=== PATIENT | female | born 1965 | race Caucasian/White ===

== ENCOUNTER 2019-05-08 11:02 | Outpatient (CLI) | payer BC, SELFPAY ==
--- NOTE | ~2019-05-08 | XR_ITS ---
EXAMINATION: SNIFF TEST W/O CXR +FLUORO<1HR DATE: 03/10/11 11:13:00 INDICATION: Shortness of breath TECHNIQUE: Fluoroscopy was utilized for evaluation of diaphragmatic excursion with rapid inspiration. Fluoroscopy exposure time was 0.3 minutes. The DAP for this procedure was 3.83 Gycm2 COMPARISON: 04/27/19 FINDINGS: Patient became lightheaded and diaphoretic after the AP views of the chest were obtained an d examination was terminated. There is elevation of the left hemidiaphragm compared to the right with normal breathing. There is normal caudal excursion of both the right leaf of the diaphragm with rapi d inspiration. There is very little movement of the left hemidiaphragm with rapid inspiration. Visual ized portions of lung are clear. Heart size is normal. IMPRESSION: 1. 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 Reviewed, dictated and finalized at location A. CH PATHOLOGY ASSISTANT
== END 2019-05-08 11:03 | disposition home or self-care (01) ==
PROVIDERS: PCP Physician Assistant Medical; Visit Provider Family Medicine
DX: R06.02 Shortness of breath (principal)
CPT/HCPCS: 76000

== ENCOUNTER 2019-06-12 12:55 | Outpatient (CLI) | payer BC, SELFPAY ==
--- NOTE | ~2019-06-12 | CT_ITS ---
EXAMINATION: CT chest wo con DATE: 06/12/2019 13:47 INDICATION: Paralysis of the diaphragm. Dyspnea. TECHNIQUE: Computed tomography (CT) of the chest was performed without intravenous contrast. The dose -length product was 277.06 mGy-cm. Automated exposure control and iterative reconstruction technique were employed. COMPARISON: Chest x-ray dated 04/27/2019 FINDINGS: No thoracic lymphadenopathy. There is significant elevation of the left diaphragm, compatib le with diaphragmatic paralysis given the clinical history. Heart size is normal. No significant pleu ral or pericardial effusion. There is left basilar atelectasis. No suspicious pulmonary nodules or ma sses. No focal consolidation to suggest pneumonia. There is an irregular shaped 2 cm mass in the late ral aspect of the right breast, image 54. There is a 3.1 cm cyst left hepatic lobe. IMPRESSION: 1. 2 cm mass lateral aspect of the right breast. Correlation with diagnostic bilateral mammogram and right breast ultrasound recommended. 2: Significant elevation of the left diaphragm, concerning for diaphragmatic paralysis. Left basilar atelectasis. Reviewed, dictated and finalized at location B. TMAN IMPRESSION: 1. 2 cm mass lateral aspect of the right breast. Correlation with diagnostic bi lateral mammogram and right breast ultrasound recommended. 2: Significant elevation of the left diaphragm, concerning for diaphragmatic pa ralysis. Left basilar atelectasis.
--- NOTE | ~2019-06-12 | CT_ITS ---
EXAMINATION: CT soft tissue neck wo con DATE: 06/12/2019 13:45 INDICATION: Paralysis of diaphragm. TECHNIQUE: Computed tomography (CT) of the neck was performed without intravenous contrast. Automated exposure control and iterative reconstruction technique were employed. The dose-length product was 5 69.75 mGy-cm. COMPARISON: None FINDINGS: The orbits are normal. There are no pathologically enlarged lymph nodes. There is mucosal t hickening in the paranasal sinuses with changes of ethmoidectomies and uncinectomies. The mastoid air cells are normal. There is mild cervical spondylosis. IMPRESSION: 1. No evidence of malignancy. Reviewed, dictated and finalized at location A. 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
== END 2019-06-12 12:56 | disposition home or self-care (01) ==
PROVIDERS: PCP Physician Assistant Medical
DX: J98.6 Disorders of diaphragm (principal); R91.8 Other nonspecific abnormal finding of lung field
CPT/HCPCS: 70490; 71250

== ENCOUNTER 2020-08-16 22:59 | Emergency (ER) | payer BC, SELFPAY ==
--- NOTE | ~2020-08-16 | XR_ITS ---
XR chest 2V 08/16/2020 23:55 Indication: Chest pain and cough Procedure: PA and lateral views of the chest Comparison: 04/27/2019 Findings: Heart size normal. Chronic elevation of the left diaphragm, suspicious for phrenic nerve pa ralysis. Left basilar atelectasis. No acute pneumonia, pleural effusion or pneumothorax. No edema. No acute osseous abnormality. Impression: 1: Chronic elevation of the left diaphragm with compressive atelectasis. Reviewed, dictated and finalized at location A. Impression: 1: Chronic elevation of the left diaphragm with compressive atelectasis.
--- NOTE | ~2020-08-16 | CT_ITS ---
EXAMINATION: CTA chest PE protocol DATE: 08/17/2020 09:29 CDT INDICATION: Left-sided chest pain TECHNIQUE: Computed tomographic angiography (CTA) of the chest was performed with 100 mL Omnipaque-35 0 intravenous contrast. The dose-length product was 532.75 mGy-cm. Maximum intensity projection 3D-re constructions of the aorta and other arteries were constructed by the technologist on a separate work station. COMPARISON: CT dated 06/12/2019. FINDINGS: Study is technically adequate without evidence for pulmonary embolism. No evidence for thor acic aortic aneurysm or dissection. Heart size is normal. Chronically elevated left diaphragm, suspic ious for phrenic nerve paralysis. Compressive atelectasis left lung base. No focal airspace consolida tion. No pneumothorax. 3.5 cm liver cyst, left hepatic lobe. There is mild superior endplate compress ion deformity of a upper lumbar vertebra, likely chronic. Mild thoracic spondylosis. IMPRESSION: 1. No evidence for pulmonary embolism. No acute cardiopulmonary disease. 2: Chronic elevation left diaphragm with compressive atelectasis. Reviewed, dictated and finalized at location A.
[2020-08-16 23:03] VITALS: BP 153/104; PULSE 98; RESP 22; TEMP 36.7; O2SAT 100
--- NOTE | 2020-08-16 23:10 | ECG_ITS ---
Measurements Intervals [place] Rate: 103 P: 48 MN: 169 QRS: 37 QRSD: 84 T: 47 QT: 313 QTc: 411 Interpretive Statements SINUS TACHYCARDIA BASELINE ARTIFACT- III, V4 BORDERLINE ECG Electronically Signed On 08-17-2020 7:55:41 CDT by Sheldon Gaming D.O.
[2020-08-16 23:20] VITALS: BP 114/84; PULSE 94; RESP 17
[2020-08-16 23:31] VITALS: BP 116/74; PULSE 94; RESP 13
--- NOTE | 2020-08-16 23:38 | ED.CHESTPAIN ---
HPI - Chest Pain General Chief Complaint: Chest Pain Stated Complaint: chest pain with deep breathing Time Seen by Provider: 08/16/20 23:04 Source: patient and RN notes reviewed Mode of arrival: ambulatory Limitations: no limitations History of Present Illness HPI narrative: This is a 55 year old female who presents for evaluation left upper abdominal pain, left lower rib pain. She noticed pain to left flank, left lower chest last night. She describes her pain as a dull ache. This pain has been constant but it is worse with breathing. 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 Over the past 2 days, she feels like her breathing is more short of breath than usual. She states her pain radiates to her back. She has mild dry cough. She denies nausea, vomiting, fever or chills. Pain scale (0-10): 6 Relieving factors: nothing Treatment prior to arrival: aspirin Related Data Allergies Allergy/AdvReac Type Severity Reaction Status Date / Time No Known Allergies Allergy Verified 08/16/20 23:11 Review of Systems Review of Systems: All systems reviewed & are unremarkable except as noted in HPI and below Constitutional: Constitutional: Denies chills, Reports fatigue and Denies fever(s) Cardiovascular: Cardiovascular: Reports chest pain Respiratory: Respiratory: Reports cough and Reports dyspnea Gastrointestinal: Gastrointestinal: Denies constipation, Denies diarrhea, Denies nausea and Denies vomiting Genitourinary: Genitourinary: Denies hematuria and Reports flank pain Musculoskeletal: Musculoskeletal: Reports back pain [facility] Past Medical History Medical History (Updated 08/17/20 @ 02:57 by Dasha Golden MD) Anxiety Family History Family History Grandparent Family history of pancreatic cancer Sibling Family history of malignant neoplasm of breast in first degree relative Social History Social History Smoking status: Never smoker Alcohol intake: current Exam Const: General: no acute distress and alert Nutritional Appearance: obese Orientation/consciousness: patient oriented x3 Eyes: EOM: EOMs intact bilaterally Chest: Chest palpation & inspection: normal inspection of the chest Resp: Effort & Inspection: normal respiratory effort and no retractions Auscultation: clear to auscultation bilaterally Cardio: Rate: regular rate Rhythm: regular rhythm Heart sounds: no murmurs GI: GI Palp: Yes Soft to palpation, No Tenderness to palpation present (GI) and No Guarding due to palpation present (GI) Auscultation: normal bowel sounds Skin: General skin exam: normal color Rashes: no rashes Neuro: General: patient oriented x3, moves all extremities and CN's II-XI intact bilaterally Course Reevaluation(s) Reevaluation #1: PAtient has been resting comfortable. I Discussed with patient and her CT findings of elevated left diaphragm with atelectasis. She states she has been evaluated by pulmonology and other specialist. She denies any symptoms at this time. Date: 08/17/20 Time: 02:50 Vital Signs Vital signs: Vital Signs Temperature 98.1 F 08/16/20 23:03 Pulse Rate 98 08/16/20 23:03 Respiratory Rate 22 H 08/16/20 23:03 Blood Pressure 153/104 H 08/16/20 23:03 Pulse Oximetry 100 08/16/20 23:03 Temperature 98.1 F 08/16/20 23:03 Pulse Rate 76 08/17/20 03:10 Respiratory Rate 18 08/17/20 03:10 Blood Pressure 110/70 08/17/20 03:10 Pulse Oximetry 97 08/17/20 03:10 MDM - Chest Pain Lab Data Attestation: I reviewed the patient's lab results. Result diagrams: 08/16/20 23:13 08/16/20 23:13 Labs: Lab Results 08/16/20 08/16/20 08/16/20 Range/Units 23:13 23:13 23:13 WBC 8.2 (4.5-10.0) K/mm3 RBC 4.55 (4.2-5.4) M/mm3 Hgb 14.7 (12.0-15.0) g
[2020-08-16 23:40] VITALS: BP 116/74; PULSE 98; RESP 18; O2SAT 94
[2020-08-16 23:44] LABS: Basophils Percent Auto 0.5 % (0.2-1.2); Eosinophils Absolute Auto 0.3 K/mm3 (0-0.3); Eosinophils Percent Auto 3.2 % (0-4.4); Hematocrit 43.2 % (37.0-47.0); Hemoglobin 14.7 g/dL (12.0-15.0); Immature Granulocyte Absolute 0.01 K/mm3 (0.00-0.031); Immature Granulocyte Percent A 0.1 % (0-0.5); Lymphocytes Absolute Auto 3.82 K/mm3 (0.9-3.2); Lymphocytes Percent Auto 46.6 % (18.3-44.2); Mean Corpuscular Hemoglobin 32.3 pg (26-34); Mean Corpuscular Volume 94.9 fl (80-100); Mean Platelet Volume 9.7 fl (7.4-10.4); Monocytes Absolute Auto 0.6 K/mm3 (0.1-0.6); Monocytes Percent Auto 7.7 % (2.6-8.5); Neutrophils Absolute Auto 3.4 K/mm3 (1.3-6.7); Neutrophils Percent Auto 41.9 % (45.5-73.1); Platelet Count Result 224 k/mm3 (150-375); Red Blood Count 4.55 M/mm3 (4.2-5.4); Red Cell Distribution Width 11.8 % (11.5-14.5); White Blood Count 8.2 K/mm3 (4.5-10.0)
[2020-08-16 23:51] LABS: Alanine Aminotransferase 18 U/L (4-35); Albumin Level 4.6 g/dL (3.5-5.1); Alkaline Phosphatase 64 U/L (38-126); Anion Gap 6 mmol/L (8-16); Aspartate Amino Transferase 28 U/L (14-36); Bilirubin,Total 0.2 mg/dL (0.2-1.3); Blood Urea Nitrogen 19 mg/dL (7-17); Calcium 9.7 mg/dL (8.4-10.2); Carbon Dioxide 32 mmol/L (22-30); Chloride 104 mmol/L (98-107); Estimated CRCL calculation 80 ml/min; Estimated Glomerular Filt Rate > 60; Glucose 99 mg/dL (65-105); Lipase 213 U/L (23-300); Magnesium 1.9 mg/dL (1.6-2.3); Potassium 3.8 mmol/L (3.4-5.0); Sodium 142 mmol/L (137-145)
[2020-08-16 23:52] LABS: Prothrombin Time 13.5 Seconds (11.1-14.7)
[2020-08-16 23:53] LABS: Partial Thromboplastin Time 26.4 SECONDS (22.3-36.8)
[2020-08-16 23:55] LABS: D Dimer 0.64 ug/mL (<0.48)
[2020-08-16 23:57] VITALS: BP 126/86; PULSE 90; RESP 21
[2020-08-16 23:57] LABS: Add Urine Microscopic? YES; Appearance Urine Clear (Clear); Bilirubin Urine Negative (Negative); Blood Urine Negative (Negative); Color Urine Straw (Yellow); Glucose Urine UA Negative (Negative); Ketones Urine Negative (Negative); Leukocyte Esterase Ur 2+ LEU/UL (Negative); Nitrate Urine Negative (Negative); Protein Urine Negative (Negative); RBC Urine 0-2 /hpf (0-2); Specific Grav Ur 1.009 (1.001-1.035); Squamous Epithelial Cell Urine Rare /hpf (Few); Urobilinogen Urine Negative mg/dL (<2.0); WBC Urine 16-20 /hpf
[2020-08-17 00:02] LABS: Troponin I < 0.012 ng/mL (0.000-0.034)
[2020-08-17 00:34] VITALS: BP 112/98; PULSE 91; RESP 25
[2020-08-17 01:17] VITALS: BP 101/72; PULSE 84; RESP 24
[2020-08-17] MEDS: KETOROLAC 30 MG/ML VIAL (*BKC) IV PUSH (01:17)
[2020-08-17 02:18] VITALS: BP 117/62; PULSE 87; RESP 19; O2SAT 96
[2020-08-17 02:47] LABS: Troponin I < 0.012 ng/mL (0.000-0.034)
[2020-08-17 03:10] VITALS: BP 110/70; PULSE 76; RESP 18; O2SAT 97
== END 2020-08-17 03:10 | disposition home or self-care (01) ==
PROVIDERS: Emergency Provider General Practice; PCP Physician Assistant Medical
DX: R06.00 Dyspnea, unspecified (principal); N39.0 Urinary tract infection, site not specified; J98.6 Disorders of diaphragm; R00.0 Tachycardia, unspecified
CPT/HCPCS: 36415; 71046; 71275; 80053; 81001; 81025; 83690; 83735; 84484; 85025; 85380; 85610; 85730; 87086; 87088; 93005; 96374; 99284; J1885; Q9967

== ENCOUNTER 2022-06-14 11:01 | Outpatient (CLI) | payer OTHER, BC, SELFPAY ==
--- NOTE | ~2022-06-14 | XR_ITS ---
XR chest 2V DATE: 06/14/2022 11:22 INDICATION: Chronic cough. Sinus infection. TECHNIQUE: 2 views COMPARISON: 08/27/2020 CTA chest 08/16/2020 PA and lateral chest FINDINGS: There is chronic moderate elevation of the left leaf of the diaphragm. Normal heart size. No hilar or mediastinal enlargement. There is minimal atelectasis at the left lung base. The lungs otherwise appear clear. No pleural effu meena or pulmonary vascular congestion or pneumothorax. Since 08/17/1999 21 mm apparent healed fracture deformity of the posterior right fifth rib, possible ad ditional healed posterior sixth and seventh right rib fractures. IMPRESSION: Chronic elevation of left diaphragm and minimal left basilar atelectasis; otherwise no ac tive cardiopulmonary disease One or more right rib fractures since 08/16/2020 Reviewed, dictated and finalized at location B. CTOR OF SEARCH ENGINE MARKETING IMPRESSION: Chronic elevation of left diaphragm and minimal left basilar atelec tasis; otherwise no active cardiopulmonary disease One or more right rib fractures since 08/16/2020
== END 2022-06-14 11:02 | disposition home or self-care (01) ==
PROVIDERS: PCP Family Medicine; Visit Provider Physician Assistant Medical
DX: R05.3 Chronic cough (principal); J98.11 Atelectasis
CPT/HCPCS: 71046

== ENCOUNTER 2024-10-19 11:20 | Outpatient (CLI) | payer OTHER, SELFPAY ==
--- NOTE | ~2024-10-19 | US_ITS ---
EXAMINATION: US venous doppler [facility] DATE: 10/19/2024 11:43 INDICATION: Left lower extremity pain TECHNIQUE: Grayscale ultrasound images without and with compression and Doppler ultrasound images of the left lower extremity veins were obtained. COMPARISON: None. FINDINGS: The visualized portions of left common femoral vein, profunda (deep) femoral vein, femoral vein, popl iteal vein, peroneal veins, posterior tibial veins, and greater saphenous vein outflow are patent. IMPRESSION: 1. No deep venous thrombosis. Reviewed, dictated and finalized at location A.
== END 2024-10-19 11:21 | disposition home or self-care (01) ==
PROVIDERS: PCP Family Medicine; Visit Provider Physician Assistant Surgical
DX: R60.0 Localized edema (principal)
CPT/HCPCS: 93971

== ENCOUNTER 2025-01-25 22:50 | Emergency (ER) | payer OTHER, SELFPAY ==
--- NOTE | ~2025-01-25 | XR_ITS ---
Examination: XR chest 1V Clinical History: dyspnea,chest tightness/pt has hx of paralyzed left diaphragm Comparison: 06/14/2022 Technique: Portable AP Findings: Heart size normal. Chronic elevation left hemidiaphragm, associated dependent atelectasis. No acute bony abnormality. Chronic right rib fractures. IMPRESSION: 1. No acute cardiopulmonary findings given portable technique. Reviewed, dictated and finalized at location R.
--- NOTE | ~2025-01-25 | CT_ITS ---
EXAMINATION: CTA chest PE protocol DATE: 01/26/2025 02:13 INDICATION: Shortness of breath. TECHNIQUE: Computed tomography angiography (CTA) of the chest was performed with 100 mL Omnipaque-350 intravenous contrast timed to evaluate the pulmonary arteries. Coronal maximum intensity projection 3D-reconstructions were created by the technologist. Automated exposure control and iterative reconstruction technique were employed. The dose-length product was 777.86 mGy-cm. COMPARISON: Chest CT 08/17/2020 FINDINGS: There is chronic elevation of left hemidiaphragm. There is mild atelectasis in the lungs. The heart size is normal. No pericardial effusion. There are acute pulmonary emboli in the upper lobes and lower lobes including a saddle embolus in main pulmonary artery. There are cysts in the liver measuring up to 3.9 cm . There is mild thoracic spondylosis. There is a chronic compression fracture of L1. IMPRESSION: 1. Acute bilateral pulmonary emboli. 2. Chronic elevation of left hemidiaphragm. Reviewed, dictated and finalized at location E.
--- OUTSIDE RECORDS SUMMARY | 2025-01-25 22:53 | XMS_ITS | Encounter Summary ---
Author Organization [employer] [facility] Address [address] [place] [address] Care Team Providers Care Cnc Field Service Engineer Name Role Phone Frandy Cain MD Primary Care Provider [phone] Encounter Details Date Type Department Care Team (Late st Contact Info) Description 08/21/2002 Outpatient Historical [facility] Dickson Marin MD [address] [place] [address] [place] [address] ESOPHAGITIS OTHER SPECIFIED (Primary Dx) Social History Tobacco Use Types Packs/Day Years Used Date Smoking Tobacco: Never Assessed Comments Unknown Sex and Gender Information Value Date Recorded Sex Assigned at Not on file 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 [address] PCP - General Family Practice 01/03/18 documented as of this encounter
--- OUTSIDE RECORDS SUMMARY | 2025-01-25 22:53 | XMS_ITS | Clinical Summary ---
Author Organization [facility] Address [address] [facility] [place] [address] Care Team Providers Care Level Vial Setter Name Role Phone Augusta Mitchell Primary Care Provider [phone] Source Comments [facility],non-owned Affiliates and Associated Physician Practices is amultiple site organization consisting of ambulatory clinics and hospital sitesin [place], [place], [place] and [place]. This disclosure is being madepursuant to the Care Everywhere program and may not contain all information available regarding this patient. Last updated 17[employer] [facility] Allergies No known active allergies Medications * Be aware that medications may not be up to date on this document. Alwaysverify current medications with the patient. gabapentin (NEURONTIN) 100 MG capsuleIndications: Right leg numbness,Neuropathi c pain Take 1 capsule by mouth 3 times daily 270 capsule 3 02/24/20 19 Active Additional Information Patient not taking.Reason: Other, Reported on 01/15/2025 DULoxetine (CYMBALTA) 60 MG capsule Take 1 (one) capsule by mouth once daily Active busPIRone (BUSPAR) 7.5 MG tablet TK 1 T PO BID 06/28/19 20 Active meloxicam (Mobic) 15 MG tablet Take 1 (one) tablet by mouth once daily 11/29/19 25 Active aspirin (Aspirin) 81 MG chew tabletIndications:P rophylaxis of Venous Thromboembolism Take 1 (one) tablet by mouth once daily for 14 days Reasons: Prevention of Unwanted Clot in Veins 01/16/20 25 025 Active docusate sodium (Colace) 100 MG capsule Take 1 (one) capsule by mouth 2 times daily as needed for Constipation 01/16/20 25 Active ondansetron, disintegrating, (Zofran ODT) 4 MG tablet Take 1 (one) tablet by mouth every 8 hours as needed for Nausea/Vomiting Allow tablet to dissolve on the tongue 10 tablet 01/16/20 25 Active HYDROcodone-acetami nophen (Granger) 10-325 MG tabletIndications:P ost-operative pain Take 1 (one) tablet by mouth every 6 hours as needed for Pain 28 tablet 01/16/20 25 025 Active Problems No known active problems Encounters Date Type Department Care Team Description 01/15/2025 9:32 AM CDT Anesthesia Event Count includes the [facility] - Perioperative Surgery [address] [place] [phone] Stephenie Fox MD Quillen, Dennis L, TRANSPORTATION WORKER-BEEKEEPER 01/15/2025 9:16 AM CDT - 01/15/2025 10:28 AM CDT Surgery Count includes the [facility] - Perioperative Surgery [address] [place] [id number] Oz Murray MD ARTHROSCOPY LEFT KNEE, LATERAL MENISCUS REPAIR 01/15/2025 7:06 AM CDT - 01/15/2025 2:33 PM CDT Hospital Encounter Count includes the [facility] - Perioperative Surgery [address] [place] [phone] Oz Murray MD Surgery General Discharge Disposition: Home or Self Care 01/15/2025 Travel 01/09/2025 Travel 01/03/2025 Office Visit External [address], [facility] [address] [place] [phone] Oz Murray MD 01/02/2025 10:58 AM CDT - 01/02/2025 11:59 PM CDT Hospital Encounter [facility] - Outside Imaging Discharge Disposition: Home or Self Care 01/02/2025 8:50 AM CDT Office Visit [address], [facility] [address] [place] [phone] Oz Murray MD Peripheral tear of lateral meniscus of left knee as current injury, initial encounter (Primary Dx) 12/25/2024 10:55 AM CDT Ancillary Procedure [facility] - Radiology [address] [place] [phone] Clay Sims MD Chronic pain of left knee 12/25/2024 10:40 AM CDT Office Visit [facility] [address] [place] [address], [address] [place] [address] Clay Sims MD Chronic pain of left knee (Primary Dx) from Last 3 Months Social History Tobacco Use Types Packs/Day Years Used Date Smoking Tobacco: Never Smokeless Tobacco: Never Tobacco Cessation:Counseling Given: Not Answered Alcohol Use Standard Drinks/Week Comments Yes 0 (1 standard drink = 0.6 oz pur e alcohol) occassionaly AUDIT-C Answer Date Recorded Q1: How often do you have a drink containing alcohol? Never 01/15/2025 Q2: How many drinks containi ng alcohol do you have on a typical day when you are drinking? Patient does not drink Q3: How often do you have si x or more drinks on one occasion? Never 01/15/2025 Comments No Sex and Gender Information Value Date Recorded Sex Assigned at Not on file Legal Sex Female 5:52 AM STICKER ON Gender Identity Not on file Sexual Orientation Not on file Last Filed Vital Signs Vital Sign Reading Time Taken Comments Blood Pressure 130/84 01/15/2025 1:10 PM CDT Pulse 73 01/15/2025 1:10 PM CDT Temperature 36.6 C (97.8 F) 01/15/2025 12:02 PM CDT Respiratory Rate 14 01/15/2025 12:16 PM CDT Oxygen Saturation 91% 01/15/2025 1:10 PM CDT Inhaled Oxygen Concentration - - Weight 97.5 kg (215 lb) 01/15/2025 7:37 AM CDT Height 165.1 cm (5' 5) 01/15/2025 7:37 AM CDT Body Mass Index 35.78 01/15/2025 7:37 AM CDT Plan of Treatment Upcoming Encounters Date Type Department Care Team (Late st Contact Info) Description 01/28/2025 8:30 AM CDT Office Visit [facility] [address] [facility], [address] [place] [phone] [place] [address] [facility] [address] [place], [place] [id number] Health Maintenance Due Date Last Done Comments COLOGUARD (AGES 45-75) - COL ON CA SCREENING 1964 COLON MONITORING 1964 COLONOSCOPY - COLON CA SCREENING 1964 CT COLONOGRAPHY - COLON CA SCREENING 1964 Colorectal Cancer Screening 1964 FIT - COLON CA SCREENING 1964 FLEX SIG - COLON CA SCREENING 1964 LIPID TESTING 1964 MAMMOGRAM 1964 HIV SCREENING 08/15/1979 HEPATITIS C SCREENING 08/10/1982 DTAP/TDAP/TD VACCINES (1 - Tdap) 08/15/1983 PNEUMOCOCCAL VACCINE 50+ (1 of 2 - PCV) 08/15/1983 PAP SMEAR 1985 ZOSTER VACCINE (1 of 2) 2014 DEPRESSION SCREENING 04/11/2024 COVID-19 VACCINE (1 - 2023-2 5 season) 2024 INFLUENZA VACCINE (#1) 2024 01/17/2018 SCREENING FOR DIABETES 12/25/2024 Respiratory Syncytial Virus (RSV) Vaccine Pt: or over 60 yrs (1 - 1-dose 75+ series) 08/15/2039 HEPATITIS B VACCINE Aged Out No longe r eligible based on patient's age to complete this topic HIB VACCINE Aged Out No longer eligi ble based on patient's age to complete this topic HPV VACCINE Aged Out No longer eligi ble based on patient's age to complete this topic MENINGOCOCCAL (Group B) VACCINE SHARED DECISION-MAKING Aged Out No longer eligible based on patient's age to complete this topic MENINGOCOCCAL GROUPS A/C/Y/W VACCINE Aged Out No longer eligible b ased on patient's age to complete this topic Medical Devices Implanted Type Area Warehouse Clerk Device Identifier Shelf Expiration Date Model / Serial / Lot Impl 1.5 Fiberstitch 24 D Crv Implanted:Qty: 1 on 01/15/2025 by Oz Murray MD at [facility] Left: Knee [employer] 06/08/2028 [id number] Impl 1.5 Fiberstitch 24 D Crv Implanted:Qty: 2 on 01/15/2025 by Oz Murray MD at [facility] Left: Knee [employer] 01/08/2029 [id number] / [id number] Procedures Procedure Name Priority Date/Time Associated Diagnosis Comments IMAGING/RADIOLOGY/X RAY RESULTS ORDER 01/17/2025 9:39 PM CDT PERIPHERAL BLOCK Routine 01/15/2025 1:17 PM CDT MS KNEE SCOPE,MEDIAL OR LATERAL MENISECTOMY 01/15/2025 9:26 AM CDT Special Needs ARTHREX (LEONID) NOTIFIED-KS XR KNEE LEFT 3VW Routine 12/25/2024 10:5 6 AM CDT Chronic pain of left knee from Last 3 Months Results * IMAGING/RADIOLOGY/XRAY RESULTS ORDER (01/17/2025 9:39 PM CDT) Anatomical Region Laterality Modality Other Narrative 01/17/2025 9:39 PM CDT Ordered by an unspecified provider. us Scanned Document IMAGING Final Result * Peripheral Nerve Block (01/15/2025 1:17 PM CDT) Narrative Stephenie Fox MD - 01/15/2025 1:17 PM CDT Stephenie Fox MD 01/15/2025 1:18 PM Peripheral Nerve Block Procedure: Peripheral Nerve Block Patient Location: Pre-op Preprocedure Section: Indications: at surgeon's request, at patient's request and postop pain management. Pre-anesthetic Checklist: Patient identified, IV Checked, Site examined and clear, Risks and benefits discussed, Surgical consent verified, Monitors and equipment, Time-out performed, Informed consent obtained, Pre-op evaluation done, Questions answered/anesthesia questions answered, Allergies reviewed and Removal hand/wrist jewelry Monitors: Pulse Ox. Patient Condition: sedated, meaningful contact maintained throughout procedure Patient Position: supine Patient Sedated? No Procedure Section Laterality: left Block Performed: Adductor Canal Prep: Chloraprep Strerile Field: gloves, mask and hat/cap Needle Type: Echogenic insulated Needle Gauge: 22 Needle Length: 80 mm Catheter? No Ultrasound Guided? Yes Technique: in plane Visualization: Preliminary scan performed, Important anatomical structures identified, Needle tip visualized throughout the procedure, Target identified, No intraneural or intravascular puncture occurred, Ultrasound image in chart, Local visualized surrounding nerve on ultrasound and Hydrodissection utilized Injection was made incrementally with constant monitoring and aspirations every 5 mL's Procedure Tolerance: tolerated well Assessment: completed Procedure Start Time: 01/15/2025 1:04 PM. Procedure End Time: 01/15/2025 1:10 PM. Procedure Total Time: 6 minutes. Staff Section Anesthesia Provider: Stephenie Fox MD, Performed the procedure us Stephenie Fox MD GENERAL ANESTHESIA ORDERA BLES Final Result * XR Knee Left 3Vw (12/25/2024 10:56 AM CDT) Narrative [facility] [address] - 12/25/2024 10:56 AM CDT Please see progress note in Epic for results. us Clay Sims MD DIAGNOSTIC IMAGING ORDERABLES Final Result Performing Organization Address City/State/[facility] Co de Phone Number [facility] [address] from Last 3 Months [place] [address] [facility] Care Teams Level Vial Setter Relationship Specialty Start Date End Date Augusta Mitchell PA [address] [place] [address] PCP - General Physician Mobility Manager 06/14/16
--- OUTSIDE RECORDS SUMMARY | 2025-01-25 22:53 | XMS_ITS | Encounter Summary ---
Author Organization [employer] Address 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 [address] PCP - General Family Practice 01/03/18 documented as of this encounter
--- OUTSIDE RECORDS SUMMARY | 2025-01-25 22:53 | XMS_ITS | Encounter Summary ---
Author Organization [facility] Address [address] 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 [id number] PCP - General Family Practice 01/03/18 documented as of this encounter
--- OUTSIDE RECORDS SUMMARY | 2025-01-25 22:53 | XMS_ITS | Encounter Summary ---
Author Organization [facility] Address [address] [place] [address] Care Team Providers Care Infantry Senior Sergeant Name Role Phone Frandy Cain MD Primary Care Provider [phone] Encounter Details Date Type Department Care Team (Late st Contact Info) Description 11/27/2007 Outpatient Historical [facility] Archie Murguia Lumbago Social History Tobacco Use Types Packs/Day Years Used Date Smoking Tobacco: Never Assessed Comments Unknown Sex and Gender Information Value Date Recorded Sex Assigned at Not on file Legal Sex Female 5:24 AM DOULA Gender Identity Not on file Sexual Orientation Not on file documented as of this encounter Plan of Treatment Not on file documented as of this encounter Procedures Procedure Name Priority Date/Time Associated Diagnosis Comments XR LUMBAR SPINE W BENDING 6+VW Timed Study 11/27/2007 2:48 PM CDT documented in this encounter Results * XR LUMBAR SPINE W BENDING VW (11/27/2007 2:48 PM CDT) Anatomical Region Laterality Modality Spine Other 11/27/2007 2:48 PM CDT Narrative 11/28/2007 7:30 AM CDT [address] [address] Admit Date: 11/27/2007 MELISSA POPE Sex: F Admit Prov: ARCHIE MURGUIA Date: 1965 Primary Care Prov: CROW MONROY CMRN: [id number] [id number] Ordering Prov: N/A Accession Number: [id number] Interpretation Clinical Indication: 42-year-old woman with low back pain. REPORT: AP, LATERAL, BOTH OBLIQUE, AND FLEXION/EXTENSION VIEWS OF THE LUMBAR SPINE 11/27/2007 Comparison: None. Findings: There is anterolisthesis of L4 upon L5. In the neutral position, this measures approximately 4 mm. With flexion, this increases to 5 mm and with extension, this decreases to 3 mm. There is a suggestion of spondylolysis at L4 bilaterally. There is mild to moderate disc space narrowing at L4-L5. There is mild disc space narrowing at L5-S1. Evaluation of the sacrum is limited due to overlying bowel gas and degree of film penetration. Impression: 1. Mild to moderate degenerative disc disease at L4-L5. There is motion with flexion/extension at this level with possible bilateral spondylolysis. There is grade 1 spondylolisthesis. 2. Mild degenerative disc disease at L5-S1. . Dictated by: ABDIAZIZ MONTGOMERY 11/27/2007 15:15 Electronically signed by: ABDIAZIZ MONTGOMERY 11/28/2007 07:29 Transcribed: 11/27/2007 20:53 SJ Procedure Note Abdiaziz Montgomery - 11/28/[address] [address] Admit Date: 11/27/2007 JESSEMELISSA EMERY Cecy Sex: F Admit Prov: CARA MURGUIAYANETH MENCHACA Date: 1965 Primary Care Prov: CROW MONROY CMRN: [id number] Room: [facility] SSN: [id number] IMAGING SERVICES Ordering Prov: N/A Interpretation Clinical Indication: 42-year-old woman with low back pain. REPORT: AP, LATERAL, BOTH OBLIQUE, AND FLEXION/EXTENSION VIEWS OFTHE LUMBAR SPINE 11/27/2007 Comparison: None. Findings: There is anterolisthesis of L4 upon L5. In the neutralposition, this measures approximately 4 mm. With flexion, this increases to 5mm and with extension, this decreases to 3 mm. There is a suggestion of spondylolysis at L4 bilaterally. There is mild to moderate discspace narrowing at L4-L5. There is mild disc space narrowing at L5-S1.Evaluation of the sacrum is limited due to overlying bowel gas and degree offilm penetration. Impression: 1. Mild to moderate degenerative disc disease at L4-L5. There ismotion with flexion/extension at this level with possible bilateralspondylolysis. There is grade 1 spondylolisthesis. 2. Mild degenerative disc disease at L5-S1. . Dictated by: ABDIAZIZ MONTGOMERY 11/27/2007 15:15 Electronically signed by: ABDIAZIZ MONTGOMERY 11/28/2007 07:29 Transcribed: 11/27/2007 20:53 SJ Archie Murguia DIAGNOSTIC IMAGING ORDERABLES Final Result documented in this encounter Visit Diagnoses Diagnosis Lumbago documented in this encounter Care Teams Infantry Senior Sergeant Relationship Specialty Start Date End Date Frandy Cain MD [address] [place] [address] PCP - General Family Practice 01/03/18 documented as of this encounter
--- OUTSIDE RECORDS SUMMARY | 2025-01-25 22:53 | XMS_ITS | Encounter Summary ---
Author Organization [facility] Address [address] 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 [phone] PCP - General Family Practice 01/03/18 documented as of this encounter
--- OUTSIDE RECORDS SUMMARY | 2025-01-25 22:53 | XMS_ITS | Clinical Summary ---
Author Organization [facility] Address [address] [place] [address] Care Team Providers Care Labview Programmer Name Role Phone Frandy Cain MD Primary Care Provider Allergies No known active allergies Medications glucosamine sulfate (GLUCOSAMINE ORAL) Take 1 Tablet by mouth daily. Active MAGNESIUM ORAL Take 1 Tablet by mouth daily. Active DULoxetine (CYMBALTA) 60 mg Capsule, Delayed Release(E.C.) Take 60 mg by mouth daily. Active meloxicam (MOBIC) 15 mg tabletIndication s:S/P total knee arthroplasty, right Take 1 Tablet (15 mg) by mouth daily. 30 Tablet 2 02/15/2018 Active Active Problems Problem Noted Date Diagnosed Date Status post total right knee replacement using c ement 04/13/2018 Status post total right knee replacement using c ement 03/07/2018 Assessment & Plan (02/08/2019 1:34 PM CDT): Stable. 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 Gender Identity Not on file Sexual Orientation Not on file Last Filed Vital Signs Vital Sign Reading Time Taken Comments Blood Pressure 130/84 02/08/2019 11:14 AM CDT Pulse 76 04/13/2018 9:57 AM FOOD PHOTOGRAPHER Temperature 36.3 C (97.3 F) 01/17/2018 12:56 PM CDT Respiratory Rate 18 01/17/2018 12:56 PM CDT Oxygen Saturation 98% 01/17/2018 12:56 PM CDT Inhaled Oxygen Concentration - - Weight 103.9 kg (229 lb) 02/08/2019 11:14 AM CDT Height 165.1 cm (5' 5) 02/08/2019 11:14 AM CDT Body Mass Index 38.11 02/08/2019 11:14 AM CDT Plan of Treatment Health Maintenance Due Date Last Done Comments DTAP/TDAP/TD VACCINES (1 - Tdap) 08/15/1983 HPV/Cotest (21-29) 1985 CERVICAL CANCER SCREENING 1994 HPV/Cotest (30-65) 1994 PAP SMEAR 1994 BREAST CANCER SCREENING 01/24/2009 01/25/2008 COLORECTAL SCREENING 2009 Colorectal Cancer Screening 2009 FIT-DNA Q 3 years 2009 FIT/FOBT Q 1 year 2009 Flex Sig/CT Colonography Q 5 years 2009 ZOSTER VACCINE (1 of 2) 2014 INFLUENZA VACCINE (#1) 2024 01/17/2018 RSV VACCINE (60+ or ) (1 - 1-dose 75+ series) 08/15/2039 HEPATITIS B VACCINES Aged Out No long er eligible based on patient's age to complete this topic Medical Devices Implanted Type Area Sales Team Manager Device Identifier Shelf Expiration Date Model / Serial / Lot Cement Smartset Hv 40gr [id number] - Sna Implanted:Qty : 1 on 01/16/2018 by Toni Mccoy MD at [facility] Right: Knee [employer] 06/09/2019 [id number] / NA / [id number] Comp Fem Attn Ps Cmnt Sz7 1504-10-207 - [id number] Implanted:Qty : 1 on 01/16/2018 by Toni Mccoy MD at [facility] Right: Knee [employer] 07/10/2027 [id number] / / [id number] Description:KENN REQ [id number] Patella Attune Dome 38mm [id number] - [id number] Implanted:Qty : 1 on 01/16/2018 by Toni Mccoy MD at [facility] Knee Right: Knee [employer] 09/08/2022 [id number] / / [id number] Attune Tib Base Rotating Platform Sz 5 Lukasz Implanted:Qty : 1 on 01/16/2018 by Toni Mccoy MD at [facility] Right: Knee [employer] 09/09/2027 [id number] / / [id number] Description:ENT FOR CHRGS BY Chemo ITEM ADD Attune Tibial Insert Sz 7 10mm Implanted:Qty : 1 on 01/16/2018 by Toni Mccoy MD at [facility] Right: Knee [employer] 01/08/2022 [id number] / / [id number] Description:ENT FOR CHRGS BY Chemo ITEM ADD Procedures Procedure Name Priority Date/Time Associated Diagnosis Comments MAMMO DIAGNOSTIC UNI LEFT W OR WO CAD Routine 01/25/2008 from Last 3 Months or Most Recently Relevant to Health Maintenance Results * MAMMO DIGITAL DIAG UNI LEFT (01/25/2008) Anatomical Region Laterality Modality Breast Left Other Chloe Osorio MD MAMMO ORDERABLES Final Result from Last 3 Months or Most Recently Relevant to Health Maintenance Insurance [place] [id number] [facility] BLUE PREFERRED RX [facility] [employer] Advance Directives For more information, please contact: [phone] * Full Code (Latest Code Status on File) Date Activated Date Inactivated Comments 01/16/2018 6:52 PM 01/17/2018 3:46 PM Care Teams Labview Programmer Relationship Specialty Start Date End Date Frandy Cain MD [address] [place] [address] PCP - General Family Practice 01/03/18
--- OUTSIDE RECORDS SUMMARY | 2025-01-25 22:53 | XMS_ITS | Encounter Summary ---
Author Organization [facility] Address [address] 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 [phone] PCP - General Family Practice 01/03/18 documented as of this encounter
[2025-01-25 23:04] VITALS: BP 150/86; PULSE 93; RESP 20; TEMP 36.9; O2SAT 99
--- NOTE | 2025-01-25 23:08 | ECG_ITS ---
Test Date: 2025-01-25 23:15:34 Measurements Intervals [place] Rate: 96 P: 45 TX: 150 QRS: 50 QRSD: 87 T: 42 QT: 313 QTc: 397 Interpretive Statements SINUS RHYTHM BASELINE ARTIFACT- I, II, AVR NORMAL ECG No previous ECG available for comparison Electronically Signed On 01-26-2025 07:24:36 CDT by Sheldon Gaming D.O.
[2025-01-25 23:32] LABS: Hematocrit 42.7 % (37.0-47.0); Hemoglobin 14.9 g/dL (12.0-15.0); Immature Granulocyte Percent A 0.4 % (0-0.5); Lymphocytes Absolute Auto 2.01 K/mm3 (0.9-3.2); Mean Corpuscular HGB Conc 34.9 g/dl (32-36); Mean Corpuscular Hemoglobin 32.1 pg (26-34); Mean Corpuscular Volume 92.0 fl (80-100); Nucleated Red Blood Cells Absolute Auto 0.000 K/mm3 (0.0-0.012); Nucleated Red Blood Cells Perc 0.0 % (0.0-0.2); Platelet Count Result 190 k/mm3 (150-375); Red Blood Count 4.64 M/mm3 (4.2-5.4); White Blood Count 7.8 K/mm3 (4.5-10.0)
[2025-01-25 23:44] LABS: Alanine Aminotransferase 23 U/L (6-35); Albumin Level 4.5 g/dL (3.5-5.1); Alkaline Phosphatase 65 U/L (38-126); Anion Gap 8 mmol/L (4-12); Aspartate Amino Transferase 30 U/L (14-36); Bilirubin,Total 0.6 mg/dL (0.2-1.3); Blood Urea Nitrogen 15 mg/dL (7-17); Calcium 9.6 mg/dL (8.4-10.2); Carbon Dioxide 27 mmol/L (22-30); Chloride 106 mmol/L (98-107); Estimated CRCL calculation 75 ml/min; Estimated Glomerular Filt Rate > 60; Glucose 105 mg/dL (65-110); INR 1.1; Lipase 144 U/L (23-300); Partial Thromboplastin Time 28.1 Seconds (22.3-36.8); Potassium 3.7 mmol/L (3.4-5.0); Prothrombin Time 14.1 Seconds (11.1-14.7); Sodium 141 mmol/L (137-145); Total Protein 7.7 g/dL (6.3-8.2)
[2025-01-25 23:57] LABS: Troponin I 0.130 ng/mL (0.000-0.034)
[2025-01-26] VITALS (23 sets, daily range): BP systolic 138–162; BP diastolic 79–93; PULSE 79–114; RESP 16–31; O2SAT 89–100
--- NOTE | 2025-01-26 00:41 | ED.SOB ---
HPI - SOB/Dyspnea General Chief Complaint: Shortness of Breath/Dyspnea Stated Complaint: sob Time Seen by Provider: 01/26/25 00:22 History of Present Illness HPI Narrative: 59-year-old female with a past medical history including degenerative joint disease, anxiety, paralyzed left hemidiaphragm. She presents to the emergency department with dyspnea. States that for last 3 days she has been having worsening shortness of breath and chest tightness sensation. States she can barely get up and going to the bathroom without feeling so short of breath she has to stop and steady herself. Recently had knee surgery on 01/15/2025 in [facility] with meniscal repair on her left knee after an injury several months ago. Denies any injuries afterwards or any difficulties recovering. Ambulatory baseline. No history of DVT or PE. Takes a baby aspirin but no other anticoagulants. No chest pain, nausea, vomiting, fever, chills. 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 Denies any new thoracic injuries. Was otherwise in her normal state of health. Related Data Allergies Allergy/AdvReac Type Severity Reaction Status Date / Time No Known Allergies Allergy Verified 01/25/25 23:07 Review of Systems Review of Systems: As reviewed above in HPI [facility] Past Medical History Medical History BMI 37.0-37.9, adult Anxiety Family History Family History Grandparent Family history of pancreatic cancer Sibling Family history of malignant neoplasm of breast in first degree relative Social History Social History Smoking status: Never smoker Alcohol intake: current Substance use: never Substance use type: does not use Exam Narrative: GENERAL: Dyspneic but otherwise well-appearing. Answering questions appropriately. HEAD: [Normocephalic, atraumatic.] EYES: [PERRLA and EOMI.] ENT: Nares clear, no rhinorrhea or epistaxis. Mucous membranes moist. NECK: Supple. CHEST: No wheezing, symmetric chest rise. Mildly dyspneic on conversation HEART: [Regular rate and rhythm]. No murmur heard. [Normal peripheral pulses.] ABDOMEN: [Soft, nondistended], [nontender], [No rigidity or guarding] EXTREMITIES: Normal range of motion. No edema, meniscal incision sites are clean dry and intact. Pedal pulses 2+, warm extremities. SKIN: Warm, dry, no rash. NEURO: [No focal deficits]. Alert and oriented [x3.] PSYCH: [Normal mood and affect.] Course Vital Signs Vital signs: Vital Signs Temperature 36.9 C 01/25/25 23:04 Pulse Rate 93 01/25/25 23:04 Respiratory Rate 20 01/25/25 23:04 Blood Pressure 150/86 H 01/25/25 23:04 Pulse Oximetry 99 01/25/25 23:04 Oxygen Delivery Room Air 01/25/25 23:04 Temperature 36.9 C 01/25/25 23:04 Pulse Rate 91 01/26/25 07:56 Respiratory Rate 16 01/26/25 07:56 Blood Pressure 162/93 H 01/26/25 07:56 Pulse Oximetry 94 01/26/25 07:56 Oxygen Delivery Room Air 01/26/25 07:26 MDM - SOB/Dyspnea MDM Narrative Medical decision making narrative: 59-year-old female with a past medical history including degenerative joint disease, anxiety, paralyzed left hemidiaphragm. She presents to the emergency department with dyspnea. States that for last 3 days she has been having worsening shortness of breath and chest tightness sensation. States she can barely get up and going to the bathroom without feeling so short of breath she has to stop and steady herself. Recently had knee surgery on 01/15/2025 in [facility] with meniscal repair on her left knee after an injury several months ago. Denies any injuries afterwards or any difficulties recovering. Ambulatory baseline. No history of DVT or PE. Takes a baby aspirin but no other anticoagulants. No chest pain, nausea, vomiting, fever, chills. 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 Denies any new thoracic injuries. Was otherwise in her normal state of health. Patient has no signs of DVT on examination. No unilateral edema. No calf cramping or pain. Placed on clinical education specialist and vital signs so no tachycardia, fever, hypoxemia. Blood pressure mildly elevated 150/86. Differential includes pneumonia, pleural effusion, atelectasis especially with her history of paralyzed diaphragm, pulmonary embolism in the setting of recent surgery, less likely ACS. Workup underway including CBC, CMP, troponin, chest x-ray and EKG. CT angiography of the chest was ordered this time for further evaluation. CT angiography reviewed by myself which shows what appears to be a saddle embolism with mostly extended into the left pulmonary arterial tree with scattered subsegmental is bilaterally. Appears to have equivocal LV to RV ratio possibility of some heart strain. Troponin is elevated. EKG is nonischemic. Given a dose of weight based Lovenox. Spoke to the hospitalist Dr. Cates for admission and she recommended trying to transfer the patient for thrombectomy. Was connected to the [facility] transfer system and they consult Interventional Radiology who agreed to evaluate the patient for mechanical thrombectomy of warranted and recommended transfer to the emergency department. Spoke to Dr. Potts from the [facility] Emergency Department who accepted the transfer at this time. Patient is saturating 99% on room air. Tachycardia improved and hemodynamically stable. Awake alert oriented. No chest pain but is dyspneic. Agree to transfer at this time. ALS ambulance services were arranged for transfer to [facility]. Medical Records Attestation: I reviewed the patient's medical records. Lab Data Attestation: I reviewed the patient's lab results. 01/25/25 23:17 01/25/25 23:17 Labs: Lab Results 01/25/25 Range/Units 23:17 WBC 7.8 (4.5-10.0) K/mm3 RBC 4.64 (4.2-5.4) M/mm3 Hgb 14.9 (12.0-15.0) g/dL Hct 42.7 (37.0-47.0) % MCV 92.0 (80-100) fl MCH 32.1 (26-34) pg MCHC 34.9 (32-36) g/dl RDW 11.6 (11.5-14.5) % Plt Count 190 (150-375) k/mm3 MPV 8.9 (7.4-10.4) fl Immature Gran % (Auto) 0.4 (0-0.5) % Neut % (Auto) 64.5 (45.5-73.1) % Lymph % (Auto) 25.9 (18.3-44.2) % [place] % (Auto) 5.8 (2.6-8.5) % Eos % (Auto) 2.8 (0-4.4) % Baso % (Auto) 0.6 (0.2-1.2) % Lymph # (Auto) 2.01 (0.9-3.2) K/mm3 [place] # (Auto) 0.5 (0.1-0.6) K/mm3 Eos # (Auto) 0.2 (0-0.3) K/mm3 Baso # (Auto) 0.1 (0.0-0.1) K/mm3 Abs Immat Gran (auto) 0.03 (0.00-0.031) K/mm3 Absolute Neuts (auto) 5.0 (1.3-6.7) K/mm3 Absolute Nucleated RBC 0.000 (0.0-0.012) K/mm3 Nucleated RBC % 0.0 (0.0-0.2) % PT 14.1 (11.1-14.7) Seconds INR 1.1 APTT 28.1 (22.3-36.8) Seconds Sodium 141 (137-145) mmol/L Potassium 3.7 (3.4-5.0) mmol/L Chloride 106 (98-107) mmol/L Carbon Dioxide 27 (22-30) mmol/L Anion Gap 8 (4-12) mmol/L BUN 15 (7-17) mg/dL Creatinine 0.80 (0.7-1.0) mg/dL Estim Creat Clear Calc 75 ml/min Estimated GFR > 60 (59 - ) Glucose 105 (65-110) mg/dL Calcium 9.6 (8.4-10.2) mg/dL Total Bilirubin 0.6 (0.2-1.3) mg/dL AST 30 (14-36) U/L ALT 23 (6-35) U/L Alkaline Phosphatase 65 (38-126) U/L Troponin I 0.130 H* (0.000-0.034) ng/mL NT-Pro-B Natriuret Pep 98 (19.9-100) pg/mL Total Protein 7.7 (6.3-8.2) g/dL Albumin 4.5 (3.5-5.1) g/dL Lipase 144 (23-300) U/L Imaging Data Attestation: I personally reviewed and interpreted this imaging study as follows: My impression: Large pulmonary embolism clot burden appears to be saddle embolism verses large left main with right-sided subsegmental Critical Care Time Critical Care Time Critical Care Time: Yes Total Critical Care Time: 50 Discharge Plan Discharge Clinical Impression: Bilateral pulmonary embolism, Shortness of breath Patient Disposition: Acute Care Hospital Condition: Stable Patient Language: Lithuanian Prescriptions: No Action duloxetine 20 mg capsule,delayed release(DR/EC) See Rx Instructions .ROUTE .COMPLEX Qty: 90 0RF Dose Instruction: TAKE 1 CAPSULE BY MOUTH DAILY Rx Instructions: TAKE 1 CAPSULE BY MOUTH DAILY meloxicam 15 mg tablet 15 mg PO DAILY Qty: 90 1RF Follow-up/Referrals: Frandy Cain MD [Primary Care Provider, [facility]] Time of Disposition: 05:32
[2025-01-26 00:49] LABS: NT Pro B Type Natriuretic Pept 98 pg/mL (19.9-100)
[2025-01-26] MEDS: ASPIRIN 81 MG CHEWABLE TABLET 324 MG PO (01:19)
[2025-01-26] MEDS: ENOXAPARIN 100 MG/ML SYRINGE 96 MG SUB-Q (06:07)
== END 2025-01-26 08:25 | disposition short-term general hospital (02) ==
PROVIDERS: Emergency Provider Student in an Organized Health Care Education/Training Program; PCP Family Medicine
DX: I26.99 Other pulmonary embolism without acute cor pulmonale (principal); J98.6 Disorders of diaphragm
CPT/HCPCS: 36415; 71045; 71275; 80053; 83690; 83880; 84484; 85025; 85610; 85730; 93005; 96372; 99291; A9270; J1650; Q9967